=== PATIENT | male | born 1995 | race Caucasian/White ===

== ENCOUNTER 2023-10-22 10:51 | Emergency (ER) | payer OTHER ==
[~2023-10-22] VITALS: Ht 182.9 cm; Wt 105.0 kg
[2023-10-22 10:55] VITALS: O2SAT 99
[2023-10-22] MEDS: LEVETIRACETAM 1000MG PREMIX 100 ML IV ONE (11:16)
[2023-10-22 12:08] LABS: BASOPHILS % 0.5 % (0.0-2.0); HEMATOCRIT. 45.3 % (42.0-52.0); HEMOGLOBIN. 15.3 g/dL (14.0-18.0); LYMPHOCYTES % 17.2 % (20.0-50.0); MEAN CORPUSCULAR HEMOGLOBIN 30.9 pg (28.0-32.0); MEAN CORPUSCULAR HGB CONC 33.7 g/dL (31.0-37.0); MEAN PLATELET VOLUME 7.6 fl (7.4-10.4); MONOCYTES % 4.2 % (2.0-8.0); NEUTROPHILS % 77.1 % (40.0-76.0); PLATELET 402 x1000/uL (130-400); RED BLOOD CELL COUNT 4.93 mill/uL (4.7-6.1); RED CELL DISTRIBUTION WIDTH 12.9 % (11.6-14.6); WHITE BLOOD COUNT 12.1 x1000/uL (4.5-11.0)
[2023-10-22 12:22] LABS: CHLORIDE 108 mEq/L (98-107); POTASSIUM 4.3 mEq/L (3.5-5.1); SODIUM 139 mEq/L (136-145)
[2023-10-22 12:23] LABS: CALCIUM 9.1 mg/dL (8.7-10.4); CARBON DIOXIDE 22 mEq/L (21-32)
[2023-10-22 12:28] LABS: GLUCOSE 124 mg/dL (70-105); UREA NITROGEN BLOOD 9 mg/dL (9-23)
[2023-10-22 12:30] LABS: ALANINE AMINOTRANSFERASE 54 IU/L (10-49); ALBUMIN 4.6 g/dL (3.2-4.8); ASPARTATE AMINOTRANSFERASE 27 IU/L (<34)
[2023-10-22 12:31] LABS: BILIRUBIN TOTAL 0.5 mg/dL (0.1-1.0); PROTEIN TOTAL 7.8 g/dL (6.0-8.3)
[2023-10-22 12:32] LABS: ETHANOL BLOOD < 10 mg/dL (<10)
[2023-10-22 13:02] VITALS: TEMP 98.1
[2023-10-22] MEDS: ACETAMINOPHEN 500MG TABLET PO SCH (13:02)
[2023-10-22] MEDS ORDERED: KEPP500 MT (14:48)
[2023-10-22] MEDS ORDERED: LEVE1000 MT (14:50)
[2023-10-22 15:09] VITALS: BP 119/72; PULSE 91; RESP 16
== END 2023-10-22 15:35 | disposition home or self-care (01) ==
LOC: ER 10:51
DX: R56.9 Unspecified convulsions (principal)
CPT/HCPCS: 80053; 80320; 85025; 36415; 96365; 99285; J1953; Z7610; G0480

== ENCOUNTER 2023-11-25 11:51 | Emergency (ER) | payer MEDICAID, OTHER ==
[~2023-11-25] VITALS: Ht 175.3 cm; Wt 105.0 kg
[~2023-11-25 11:51] MED LIST: LEVE1000 MT
[2023-11-25 11:54] VITALS: O2SAT 99
[2023-11-25] MEDS ORDERED: LEVE1000 MT (13:49)
[2023-11-25] MEDS ORDERED: SULF15DR26 RIGHTEYE (13:50)
[2023-11-25 13:58] VITALS: BP 124/67; PULSE 61; RESP 18; TEMP 97.8
== END 2023-11-25 14:00 | disposition home or self-care (01) ==
LOC: ER 11:51
DX: G40.909 Epilepsy, unspecified, not intractable, without status epilepticus (principal); H00.013 Hordeolum externum right eye, unspecified eyelid; Z76.0 Encounter for issue of repeat prescription
CPT/HCPCS: 99281

== ENCOUNTER 2023-12-14 01:28 | Emergency (ER) | payer MEDICAID ==
[~2023-12-14] VITALS: Ht 177.8 cm; Wt 102.0 kg
[~2023-12-14 01:28] MED LIST changes: +SULF15DR26 RIGHTEYE
[2023-12-14 01:38] VITALS: O2SAT 99
[2023-12-14] MEDS ORDERED: LEVETIRACETAM 500MG PREMIX 100 ML IV ONE (01:45)
[2023-12-14] MEDS: LEVETIRACETAM 500MG PREMIX 100 ML IV NR (02:27)
[2023-12-14 02:46] LABS: CARBON DIOXIDE 23 mEq/L (21-32); CHLORIDE 105 mEq/L (98-107); POTASSIUM 4.9 mEq/L (3.5-5.1); SODIUM 135 mEq/L (136-145)
[2023-12-14 02:47] LABS: CALCIUM 9.3 mg/dL (8.7-10.4)
[2023-12-14 02:52] LABS: GLUCOSE 132 mg/dL (70-105); UREA NITROGEN BLOOD 12 mg/dL (9-23)
[2023-12-14 03:01] LABS: BASOPHILS % 0.8 % (0.0-2.0); EOSINOPHILS % 1.4 % (0.0-5.0); HEMATOCRIT. 45.5 % (42.0-52.0); HEMOGLOBIN. 15.4 g/dL (14.0-18.0); LYMPHOCYTES % 24.3 % (20.0-50.0); MEAN CORPUSCULAR HEMOGLOBIN 30.4 pg (28.0-32.0); MEAN CORPUSCULAR HGB CONC 33.9 g/dL (31.0-37.0); MEAN CORPUSCULAR VOLUME 89.8 fL (80.0-94.0); MEAN PLATELET VOLUME 8.1 fl (7.4-10.4); MONOCYTES % 4.8 % (2.0-8.0); NEUTROPHILS % 68.7 % (40.0-76.0); PLATELET 398 x1000/uL (130-400); RED BLOOD CELL COUNT 5.07 mill/uL (4.7-6.1); RED CELL DISTRIBUTION WIDTH 12.8 % (11.6-14.6); WHITE BLOOD COUNT 11.3 x1000/uL (4.5-11.0)
[2023-12-14 03:03] LABS: CLARITY URINE CLEAR (CLEAR); COLOR URINE YELLOW (YELLOW); GLUCOSE URINE NEGATIVE (NEGATIVE); KETONES URINE TRACE (NEGATIVE); LEUKOCYTE ESTERASE URINE NEGATIVE (NEGATIVE); NITRITE URINE NEGATIVE (NEGATIVE); OCCULT BLOOD URINE 1+ (NEGATIVE); PH URINE 5.5 (4.5-8.0); PROTEIN URINE 1+ (NEGATIVE); SPECIFIC GRAVITY URINE 1.024 (1.005-1.030); UROBILINOGEN URINE 0.2 E.U./dL (0.2-1.0)
[2023-12-14 03:23] LABS: *AMPHETAMINES SCREEN URINE NEGATIVE (NEGATIVE); *BARBITURATES SCREEN URINE NEGATIVE (NEGATIVE); *BENZODIAZEPINES SCREEN URINE NEGATIVE (NEGATIVE); *COCAINE SCREEN URINE NEGATIVE (NEGATIVE); METHADONE URINE SCREEN NEGATIVE (NEGATIVE); OPIATES URINE SCREEN NEGATIVE (NEGATIVE); PHENCYCLIDINE URINE SCREEN NEGATIVE (NEGATIVE)
[2023-12-14 03:24] LABS: CANNABINOID URINE SCREEN NEGATIVE (NEGATIVE); ECSTASY MDMA SCREEN URINE NEGATIVE (NEGATIVE)
[2023-12-14 03:56] LABS: ETHANOL BLOOD < 10 mg/dL (<10)
[2023-12-14 04:03] VITALS: TEMP 98.8
[2023-12-14 05:00] VITALS: BP 124/68; PULSE 65; RESP 15
[2023-12-14 07:59] LABS: BACTERIA URINE NONE SEEN; RBC URINE 0-2 /hpf (0-2); SQUAMOUS EPITHELIAL CELL URINE NONE SEEN /lpf (RARE/1+); WBC URINE 0-2 /hpf (0-2)
== END 2023-12-14 05:15 | disposition home or self-care (01) ==
LOC: ER 01:28
DX: G40.901 Epilepsy, unspecified, not intractable, with status epilepticus (principal); S00.512A Abrasion of oral cavity, initial encounter; Z00.00 Encounter for general adult medical examination without abnormal findings; W18.30XA Fall on same level, unspecified, initial encounter; Y93.89 Activity, other specified; Y92.89 Other specified places as the place of occurrence of the external cause; Y99.8 Other external cause status
CPT/HCPCS: 80305; 80048; 81003; 80320; 82962; 85025; 36415; 96365; 99284; J1953; G0480

== ENCOUNTER 2024-04-02 09:06 | Emergency (ER) | payer MEDICAID ==
[~2024-04-02] VITALS: Ht 172.7 cm; Wt 90.0 kg
[2024-04-02 09:10] VITALS: TEMP 97.6; O2SAT 98
[2024-04-02 10:13] LABS: BASOPHILS % 0.6 % (0.0-2.0); EOSINOPHILS % 1.3 % (0.0-5.0); HEMATOCRIT. 46.3 % (42.0-52.0); HEMOGLOBIN. 15.8 g/dL (14.0-18.0); LYMPHOCYTES % 21.8 % (20.0-50.0); MEAN CORPUSCULAR HGB CONC 34.2 g/dL (31.0-37.0); MEAN CORPUSCULAR VOLUME 90.7 fL (80.0-94.0); MEAN PLATELET VOLUME 7.4 fl (7.4-10.4); MONOCYTES % 6.4 % (2.0-8.0); NEUTROPHILS % 69.9 % (40.0-76.0); PLATELET 415 x1000/uL (130-400); RED CELL DISTRIBUTION WIDTH 12.8 % (11.6-14.6); WHITE BLOOD COUNT 11.2 x1000/uL (4.5-11.0)
[2024-04-02 10:17] LABS: CHLORIDE 108 mEq/L (98-107); POTASSIUM 4.5 mEq/L (3.5-5.1); SODIUM 138 mEq/L (136-145)
[2024-04-02 10:18] LABS: CALCIUM 9.6 mg/dL (8.7-10.4); CARBON DIOXIDE 23 mEq/L (21-32)
[2024-04-02 10:23] LABS: GLUCOSE 111 mg/dL (70-105); UREA NITROGEN BLOOD 7 mg/dL (9-23)
[2024-04-02 10:25] LABS: ETHANOL BLOOD < 10 mg/dL (<10)
[2024-04-02] MEDS: KETOROLAC 30MG/ML VIAL IV ONE (10:36)
[2024-04-02] MEDS: LEVETIRACETAM 1000MG PREMIX 100 ML IV ONE (10:37)
[2024-04-02 15:39] VITALS: BP 103/49; PULSE 106; RESP 18; O2SAT 97
== END 2024-04-02 15:52 | disposition home or self-care (01) ==
LOC: ER 09:06
DX: R56.9 Unspecified convulsions (principal); M25.511 Pain in right shoulder
CPT/HCPCS: 80048; 80320; 85025; 36415; 73030; 96365; 96375; 99285; J1953; J1885; Z7610 ×4; G0480